=== PATIENT | male | born 1955 | race Caucasian/White ===

== ENCOUNTER 2023-11-16 20:06 | Inpatient (IN) | payer OTHER ==
[~2023-11-16] VITALS: Ht 172.7 cm; Wt 88.9 kg
[~2023-11-16 20:06] MED LIST: LISI10TA34 PO; METO25TA5 PO
[2023-11-16 20:40] LABS: Basophils # (auto) 0 10 ^3/uL (0-0.2); Basophils % (auto) 0.3 % (0.0-2.0); Eosinophils # (auto) 0.2 10 ^3/uL (0-0.8); Eosinophils % (auto) 1.1 % (0.0-7.0); Hematocrit 44.7 % (41.0-53.0); Hemoglobin 15.4 g/dL (13.5-17.5); Lymphocytes # (auto) 2.8 10 ^3/uL (0.4-5.4); Lymphocytes % (auto) 19.4 % (10.0-50.0); Mean Corpuscular Hgb Conc. 34.4 g/dL (32.0-36.0); Monocytes # (auto) 1.1 10 ^3/uL (0-1.3); Neutrophils # (auto) 10.2 10 ^3/uL (1.6-8.6); Neutrophils % (auto) 71.2 % (37.0-80.0); Nucleated Red Blood Cells % 0.1 %; Platelet Count (auto) 232 10^3/uL (140-450); Red Blood Cells 5.14 10^6/uL (4.5-5.90); Red Cell Distribution Width 13.3 % (11.8-14.3); White Blood Cell 14.3 10^3/uL (4.4-10.8)
[2023-11-16 20:56] LABS: Alanine Aminotransferase 70 U/L (7-40); Albumin 4.4 g/dL (3.2-4.8); Alkaline Phosphatase 71 U/L (46-116); Anion Gap 9 (5-15); Aspartate Aminotransferase 45 U/L (13-40); BUN/Creatinine Ratio 18.6 (10.0-20.0); Bilirubin, Total 2.9 mg/dL (0.2-1.0); Blood Urea Nitrogen 24 mg/dL (9-23); Calcium 10.3 mg/dL (8.7-10.4); Carbon Dioxide 23 mmol/L (20-30); Chloride 105 mmol/L (98-107); Glucose 139 mg/dL (74-106); Magnesium 1.9 mg/dL (1.6-2.6); Potassium 4.1 mmol/L (3.5-5.1); Sodium 137 mmol/L (136-145)
[2023-11-16 20:57] LABS: Total Protein 7.2 g/dL (5.7-8.2)
[2023-11-16] MEDS: SODIUM CHLORIDE 0.9% 1,000 ML IV ONE (21:27)
[2023-11-16] MEDS: cefTRIAXone 1GM/50ML D5W 50 ML IV ONE (23:32)
[2023-11-16] MEDS: KETOROLAC TROMETH 30 MG/ML 1ML VIAL IV ONE (23:34)
[2023-11-17 00:02] VITALS: PULSE 67; RESP 20; O2SAT 94
[2023-11-17] MEDS: HYDROcodone-ACET 5/325MG TAB PO ONE (00:24)
[2023-11-17] MEDS ORDERED: HYDROcodone-ACET 5/325MG TAB PO PRN (05:30)
[2023-11-17] MEDS ORDERED: ACETAMINOPHEN 325 MG TAB PO PRN (05:30)
[2023-11-17] MEDS ORDERED: ALBUTEROL SULF 2.5 MG/0.5ML(0.5%) NEB SOLN NEB PRN (05:30)
[2023-11-17] MEDS ORDERED: TEMAZEPAM 15 MG CAP PO PRN (05:30)
[2023-11-17] MEDS ORDERED: ONDANSETRON HCL 4 MG/2 ML VIAL IV PRN (05:30)
[2023-11-17 08:20] VITALS: PULSE 66; RESP 17; O2SAT 97
[2023-11-17] MEDS ORDERED: LISINOPRIL 20 MG TAB PO SCH (10:00)
[2023-11-17] MEDS ORDERED: ALLOPURINOL 100 MG TAB PO SCH (10:00)
[2023-11-17] MEDS ORDERED: levoFLOXacin 500MG 100 ML IV SCH (10:00)
[2023-11-17] MEDS ORDERED: METOPROLOL SUCCINATE XL 50 MG TAB PO SCH (10:00)
[2023-11-17] MEDS ORDERED: DESCOVY PO SCH (10:00)
[2023-11-17] MEDS ORDERED: NITROGLYCERIN 0.4 MG SL TAB SL PRN (12:00)
[2023-11-17] MEDS ORDERED: hydrALAZINE HCL 20 MG/ML VL IV PRN (12:00)
[2023-11-17] MEDS: ONDANSETRON HCL 4 MG/2 ML VIAL IV PRN (12:48)
[2023-11-17] MEDS: MORPHINE SULFATE INJ 2 MG/ml SYRG IV PRN (12:50)
[2023-11-17] MEDS: PIPERACILLIN-TAZOB 3.375GM 100 ML IV SCH (12:56)
[2023-11-17 16:01] LABS: Urine Bacteria None Seen /hpf (None Seen)
[2023-11-17 16:27] LABS: Urine Blood Negative /uL (Negative); Urine Clarity Clear (Clear); Urine Color Light-Yellow (Yellow); Urine Hyaline Cast FEW /lpf (0 - 2); Urine Protein, UAD Negative (Negative); Urine Specific Gravity 1.019 (1.001-1.035); Urine Urobilinogen Normal (Negative); Urine WBC 1 /hpf (0 - 3); Urine pH 5.5 (5.0-9.0)
[2023-11-17] MEDS: SODIUM CHLORIDE 0.9% 1,000 ML IV SCH (16:30)
[2023-11-17 16:32] LABS: Amphetamine Screen, Urine Neg (NEGATIVE); Barbiturate Scree,Urine Neg (NEGATIVE); Benzodiazephine Screen, Urine Neg (NEGATIVE)
[2023-11-17 16:33] LABS: Cannabinoid Screen, Urine Neg (NEGATIVE); Cocaine Screen, Urine Neg (NEGATIVE); Opiate Scree,Urine Neg (NEGATIVE); Phencyclidine Screen, Urine Neg (NEGATIVE)
[2023-11-17 17:00] LABS: COVID19 ANTIGEN SOFIA FIA NEGATIVE (NEGATIVE)
[2023-11-17] MEDS ORDERED: ALLO100T PO (20:39)
[2023-11-17] MEDS ORDERED: [UNRECOGNIZED DRUG - CODE] PO (20:39)
[2023-11-17] MEDS ORDERED: METO25TA93 PO (20:39)
[2023-11-17] MEDS ORDERED: FENO145T27 PO (20:39)
[2023-11-17] MEDS ORDERED: EMTR1TAB6 PO (20:39)
[2023-11-17] MEDS ORDERED: [UNRECOGNIZED DRUG - CODE] PO (20:39)
[2023-11-17] MEDS ORDERED: ASPI-325 PO (20:39)
[2023-11-17] MEDS ORDERED: ROSU40TA47 PO (20:39)
[2023-11-17] MEDS ORDERED: LISI20TA56 PO (20:39)
[2023-11-17] MEDS ORDERED: LATA0.008 EACHEYE (20:39)
[2023-11-17 21:00] VITALS: BP 116/75; PULSE 79; RESP 20; TEMP 98.3; O2SAT 92
[2023-11-17] MEDS: METOPROLOL TARTRATE 25 MG TAB PO SCH (22:00)
[2023-11-17] MEDS ORDERED: ATORVASTATIN 20 MG TAB PO SCH (22:00)
[2023-11-17] MEDS: FAMOTIDINE (10MG/ML) 2ML VL IV SCH (22:31)
[2023-11-18] VITALS (8 sets, daily range): BP systolic 97–143; BP diastolic 50–85; PULSE 59–85; RESP 16–18; TEMP 97.6–98.7; O2SAT 91–94
[2023-11-18 06:59] LABS: Basophils # (auto) 0 10 ^3/uL (0-0.2); Basophils % (auto) 0.3 % (0.0-2.0); Eosinophils # (auto) 0.3 10 ^3/uL (0-0.8); Eosinophils % (auto) 2.5 % (0.0-7.0); Hemoglobin 15.7 g/dL (13.5-17.5); Lymphocytes # (auto) 3.1 10 ^3/uL (0.4-5.4); Lymphocytes % (auto) 26.9 % (10.0-50.0); Mean Corpuscular Volume 88.1 fL (80.0-100.0); Monocytes # (auto) 1.1 10 ^3/uL (0-1.3); Neutrophils # (auto) 6.9 10 ^3/uL (1.6-8.6); Neutrophils % (auto) 60.3 % (37.0-80.0); Nucleated Red Blood Cells % 0.1 %; Platelet Count (auto) 214 10^3/uL (140-450); Red Blood Cells 5.23 10^6/uL (4.5-5.90); Red Cell Distribution Width 13.4 % (11.8-14.3); White Blood Cell 11.4 10^3/uL (4.4-10.8)
[2023-11-18 07:05] LABS: Alanine Aminotransferase 45 U/L (7-40); Albumin 4.3 g/dL (3.2-4.8); Alkaline Phosphatase 44 U/L (46-116); Anion Gap 4 (5-15); Aspartate Aminotransferase 24 U/L (13-40); BUN/Creatinine Ratio 10.9 (10.0-20.0); Blood Urea Nitrogen 12 mg/dL (9-23); Calcium 9.8 mg/dL (8.7-10.4); Carbon Dioxide 26 mmol/L (20-30); Chloride 104 mmol/L (98-107); Glucose 118 mg/dL (74-106); Lipase 36 U/L (12-53); Potassium 4.4 mmol/L (3.5-5.1); Sodium 134 mmol/L (136-145)
[2023-11-18 07:06] LABS: Bilirubin, Total 2.9 mg/dL (0.2-1.0); Total Protein 7.5 g/dL (5.7-8.2)
[2023-11-18] MEDS: LISINOPRIL 5 MG TAB PO SCH (10:00)
[2023-11-18] MEDS: ALLOPURINOL 100 MG TAB PO SCH (10:26)
[2023-11-18] MEDS: ENOXAPARIN SOD 40 MG/0.4 ML SYRINGE SC SCH (10:26)
[2023-11-18] MEDS: COLCHICINE 0.6 MG CAP PO SCH (13:15)
[2023-11-18] MEDS: ADENOSINE 75 MG in GIVE UN-DILUTED 0 ML IV ONE (15:07)
[2023-11-18] MEDS: MORPHINE SULFATE INJ 2 MG/ml SYRG IV PRN (22:06)
[2023-11-19] VITALS (8 sets, daily range): BP systolic 77–113; BP diastolic 42–69; PULSE 66–82; RESP 18–20; TEMP 97.7–99.3; O2SAT 91–94
[2023-11-19] MEDS: SODIUM CHLORIDE 0.9% 1,000 ML IV SCH (01:30)
[2023-11-19] MEDS: MORPHINE SULFATE 4 MG/ML SYR/VIAL IV PRN (09:40)
[2023-11-19 11:13] LABS: Basophils # (auto) 0 10 ^3/uL (0-0.2); Basophils % (auto) 0.1 % (0.0-2.0); Eosinophils # (auto) 0 10 ^3/uL (0-0.8); Eosinophils % (auto) 0.3 % (0.0-7.0); Hematocrit 45.1 % (41.0-53.0); Hemoglobin 15.5 g/dL (13.5-17.5); Lymphocytes # (auto) 2.4 10 ^3/uL (0.4-5.4); Lymphocytes % (auto) 18.1 % (10.0-50.0); Mean Corpuscular Hemoglobin 30.4 pg (28.0-32.0); Mean Corpuscular Hgb Conc. 34.3 g/dL (32.0-36.0); Mean Corpuscular Volume 88.6 fL (80.0-100.0); Monocytes # (auto) 1.4 10 ^3/uL (0-1.3); Monocytes % (auto) 10.2 % (0.0-12.0); Neutrophils # (auto) 9.5 10 ^3/uL (1.6-8.6); Neutrophils % (auto) 71.3 % (37.0-80.0); Nucleated Red Blood Cells % 0.1 %; Platelet Count (auto) 238 10^3/uL (140-450); Red Blood Cells 5.09 10^6/uL (4.5-5.90); Red Cell Distribution Width 13.7 % (11.8-14.3); White Blood Cell 13.4 10^3/uL (4.4-10.8)
[2023-11-19 11:24] LABS: Alanine Aminotransferase 38 U/L (7-40); Albumin 4.6 g/dL (3.2-4.8); Alkaline Phosphatase 41 U/L (46-116); Aspartate Aminotransferase 22 U/L (13-40); BUN/Creatinine Ratio 14.3 (10.0-20.0); Bilirubin, Total 2.3 mg/dL (0.2-1.0); Blood Urea Nitrogen 16 mg/dL (9-23); Calcium 10.4 mg/dL (8.7-10.4); Chloride 102 mmol/L (98-107); Glucose 127 mg/dL (74-106); Potassium 4.1 mmol/L (3.5-5.1); Sodium 133 mmol/L (136-145); Total Protein 7.9 g/dL (5.7-8.2)
[2023-11-19] MEDS: DESCOVY PO SCH (11:37)
[2023-11-19] MEDS: RITONAVIR 100 MG PO SCH (11:37)
[2023-11-19 12:10] LABS: Anion Gap 10 (5-15); Carbon Dioxide 21 mmol/L (20-30)
[2023-11-19] MEDS: HYDROcodone-ACET 5/325MG TAB PO PRN (18:23)
[2023-11-19] MEDS: SODIUM CHLORIDE 0.9% 250 ML IV ONE (22:00)
[2023-11-19 22:49] LABS: Chloride 103 mmol/L (98-107); Potassium 3.8 mmol/L (3.5-5.1); Sodium 134 mmol/L (136-145)
[2023-11-19 22:50] LABS: Anion Gap 7 (5-15); Carbon Dioxide 24 mmol/L (20-30)
[2023-11-19 22:51] LABS: Calcium 9.9 mg/dL (8.7-10.4)
[2023-11-19 22:55] LABS: BUN/Creatinine Ratio 12.8 (10.0-20.0); Blood Urea Nitrogen 20 mg/dL (9-23); Glucose 95 mg/dL (74-106)
[2023-11-19 22:56] LABS: Magnesium 2.1 mg/dL (1.6-2.6)
[2023-11-20] VITALS (9 sets, daily range): BP systolic 83–120; BP diastolic 53–74; PULSE 65–84; RESP 16–20; TEMP 97.4–98.7; O2SAT 87–99
[2023-11-20] MEDS: SODIUM CHLORIDE 0.9% 250 ML IV ONE (00:03)
[2023-11-20 00:21] LABS: Basophils # (auto) 0 10 ^3/uL (0-0.2); Basophils % (auto) 0.4 % (0.0-2.0); Eosinophils # (auto) 0.4 10 ^3/uL (0-0.8); Eosinophils % (auto) 3.2 % (0.0-7.0); Hematocrit 43.7 % (41.0-53.0); Hemoglobin 14.5 g/dL (13.5-17.5); Lymphocytes # (auto) 3.2 10 ^3/uL (0.4-5.4); Lymphocytes % (auto) 25.8 % (10.0-50.0); Mean Corpuscular Hemoglobin 29.8 pg (28.0-32.0); Mean Corpuscular Hgb Conc. 33.3 g/dL (32.0-36.0); Mean Corpuscular Volume 89.7 fL (80.0-100.0); Monocytes # (auto) 1.3 10 ^3/uL (0-1.3); Monocytes % (auto) 10.4 % (0.0-12.0); Neutrophils # (auto) 7.4 10 ^3/uL (1.6-8.6); Neutrophils % (auto) 60.2 % (37.0-80.0); Nucleated Red Blood Cells % 0.1 %; Platelet Count (auto) 215 10^3/uL (140-450); Red Blood Cells 4.87 10^6/uL (4.5-5.90); Red Cell Distribution Width 13.7 % (11.8-14.3); White Blood Cell 12.3 10^3/uL (4.4-10.8)
[2023-11-20 06:07] LABS: Basophils # (auto) 0 10 ^3/uL (0-0.2); Basophils % (auto) 0.4 % (0.0-2.0); Eosinophils # (auto) 0.4 10 ^3/uL (0-0.8); Eosinophils % (auto) 3.3 % (0.0-7.0); Hematocrit 43.6 % (41.0-53.0); Hemoglobin 15.2 g/dL (13.5-17.5); Lymphocytes # (auto) 2.9 10 ^3/uL (0.4-5.4); Lymphocytes % (auto) 25.2 % (10.0-50.0); Mean Corpuscular Hemoglobin 30.4 pg (28.0-32.0); Mean Corpuscular Hgb Conc. 34.9 g/dL (32.0-36.0); Monocytes % (auto) 8.6 % (0.0-12.0); Neutrophils # (auto) 7.2 10 ^3/uL (1.6-8.6); Neutrophils % (auto) 62.5 % (37.0-80.0); Platelet Count (auto) 261 10^3/uL (140-450); Red Blood Cells 5.01 10^6/uL (4.5-5.90); Red Cell Distribution Width 13.4 % (11.8-14.3); White Blood Cell 11.6 10^3/uL (4.4-10.8)
[2023-11-20 06:18] LABS: Chloride 102 mmol/L (98-107); Sodium 135 mmol/L (136-145)
[2023-11-20 06:19] LABS: Anion Gap 8 (5-15); Calcium 10.1 mg/dL (8.7-10.4); Carbon Dioxide 25 mmol/L (20-30)
[2023-11-20 06:24] LABS: BUN/Creatinine Ratio 14.8 (10.0-20.0); Blood Urea Nitrogen 22 mg/dL (9-23); Glucose 121 mg/dL (74-106)
[2023-11-20 06:25] LABS: INR 1.05 (0.9-1.15); Partial Thromboplastin Time 29.8 SEC (24.5-34.5); Prothrombin Time 11.1 sec (9.3-11.8)
[2023-11-20] MEDS: SODIUM CHLORIDE 0.9% 1,000 ML IV SCH (13:00)
[2023-11-20] MEDS ORDERED: MORPHINE SULFATE INJ 2 MG/ml SYRG IV PRN (14:15)
[2023-11-20] MEDS ORDERED: hydrALAZINE HCL 20 MG/ML VL IV PRN (14:15)
[2023-11-20] MEDS ORDERED: fentaNYL CITRATE 100 MCG/2 ML VL IV PRN (14:15)
[2023-11-20] MEDS: ONDANSETRON HCL 4 MG/2 ML VIAL IV ONE (14:15)
[2023-11-20] MEDS ORDERED: MIDAZOLAM HCL 2MG/2ML 2ml VIAL (1mg/ml) ONE (14:25)
[2023-11-20] MEDS ORDERED: fentaNYL CITRATE 100 MCG/2 ML VL ONE (14:25)
[2023-11-20] MEDS ORDERED: DexAMETHasone SOD PHOS 10MG/1ML VIAL INJ ONE (14:26)
[2023-11-20] MEDS ORDERED: PROPOFOL 10 MG/ML 20 ML IV ONE (14:26)
[2023-11-20] MEDS ORDERED: ONDANSETRON HCL 4 MG/2 ML VIAL ONE (14:26)
[2023-11-20] MEDS ORDERED: LIDOCAINE 2% (LOCAL ANESTH.) PF 5ml SDV ONE (14:26)
[2023-11-20] MEDS ORDERED: ROCURONIUM 10MG/ML 10ML VIAL IV ONE (14:26)
[2023-11-20] MEDS: SUCCINYLCHOLINE CHLORIDE 20 MG/ML 10ML VIAL IV ONE (14:28)
[2023-11-20] MEDS ORDERED: ePHEDrine SULFATE 50 MG/ML AMP ONE (15:07)
[2023-11-20] MEDS ORDERED: MEPERIDINE HCL (50 MG/ML) 1 ML VIAL ONE (15:26)
[2023-11-20] MEDS ORDERED: SUGAMMADEX 200mg/2ml Vial (100MG/ML) IV ONE (15:31)
[2023-11-20] MEDS: BUPIVACAINE 0.25% INJ 50ML VIAL ONE (15:50)
[2023-11-20] MEDS: MORPHINE SULFATE INJ 2 MG/ml SYRG IV ONE (16:56)
[2023-11-20] MEDS: MORPHINE SULFATE INJ 2 MG/ml SYRG ONE (16:57)
[2023-11-21] VITALS (7 sets, daily range): BP systolic 95–119; BP diastolic 20–74; PULSE 59–82; RESP 18–22; TEMP 97.4–98.3; O2SAT 87–98
[2023-11-21] MEDS: MORPHINE SULFATE INJ 2 MG/ml SYRG IV PRN (00:24)
[2023-11-21] MEDS: FAMOTIDINE (10MG/ML) 2ML VL IV SCH (09:17)
[2023-11-21] MEDS ORDERED: NALO4SPR2 (13:48)
[2023-11-21] MEDS ORDERED: HYDR-4902 PO (13:48)
[2023-11-21 14:27] LABS: Basophils # (auto) 0 10 ^3/uL (0-0.2); Basophils % (auto) 0.1 % (0.0-2.0); Eosinophils # (auto) 0 10 ^3/uL (0-0.8); Hematocrit 40.2 % (41.0-53.0); Hemoglobin 14.2 g/dL (13.5-17.5); Lymphocytes # (auto) 0.9 10 ^3/uL (0.4-5.4); Lymphocytes % (auto) 5.8 % (10.0-50.0); Mean Corpuscular Hemoglobin 30.8 pg (28.0-32.0); Mean Corpuscular Hgb Conc. 35.3 g/dL (32.0-36.0); Mean Corpuscular Volume 87.2 fL (80.0-100.0); Monocytes # (auto) 0.8 10 ^3/uL (0-1.3); Monocytes % (auto) 4.9 % (0.0-12.0); Neutrophils # (auto) 14.4 10 ^3/uL (1.6-8.6); Neutrophils % (auto) 89.2 % (37.0-80.0); Platelet Count (auto) 250 10^3/uL (140-450); Red Blood Cells 4.61 10^6/uL (4.5-5.90); Red Cell Distribution Width 13.1 % (11.8-14.3); White Blood Cell 16.1 10^3/uL (4.4-10.8)
[2023-11-21 14:40] LABS: Alanine Aminotransferase 40 U/L (7-40); Albumin 4.3 g/dL (3.2-4.8); Alkaline Phosphatase 40 U/L (46-116); Anion Gap 9 (5-15); Aspartate Aminotransferase 36 U/L (13-40); BUN/Creatinine Ratio 15.3 (10.0-20.0); Bilirubin, Total 2.2 mg/dL (0.2-1.0); Blood Urea Nitrogen 18 mg/dL (9-23); Calcium 10.3 mg/dL (8.7-10.4); Carbon Dioxide 24 mmol/L (20-30); Chloride 104 mmol/L (98-107); Glucose 160 mg/dL (74-106); Potassium 4.4 mmol/L (3.5-5.1); Sodium 137 mmol/L (136-145); Total Protein 7.8 g/dL (5.7-8.2)
[2023-11-21] MEDS ORDERED: AMOX500T86 PO (16:16)
== END 2023-11-21 19:02 | disposition home or self-care (01) | DRG 419 ==
LOC: ER 20:06 → EDBD 20:06 → TELE 11-17 11:49 → TELE-E-ADS 11-17 22:00
PROVIDERS: ADMIT Hospitalist; ATTEND Hospitalist
PROC: 0FT44ZZ Resection of Gallbladder, Percutaneous Endoscopic Approach (ICD-10-PCS; principal; 2023-11-20 14:47)
DX: K80.00 Calculus of gallbladder with acute cholecystitis without obstruction (principal); E78.5 Hyperlipidemia, unspecified; I25.10 Atherosclerotic heart disease of native coronary artery without angina pectoris; M10.9 Gout, unspecified; E66.9 Obesity, unspecified; I12.9 Hypertensive chronic kidney disease with stage 1 through stage 4 chronic kidney disease, or unspecified chronic kidney disease; N18.9 Chronic kidney disease, unspecified; Z20.822 Contact with and (suspected) exposure to COVID-19; Z95.5 Presence of coronary angioplasty implant and graft; Z82.49 Family history of ischemic heart disease and other diseases of the circulatory system; Z68.29 Body mass index [BMI] 29.0-29.9, adult
CPT/HCPCS: 36415; 71045; 74181; 76705; 78226; 78452; 80048; 80053; 80307; 81001; 82248; 83605; 83690; 83735; 83880; 84484; 85025; 85379; 85610; 85730; 86850; 86900; 86901; 87426; 93005; 93017; 93306; 96365; 96375; G0378; J0153; J0330; J1100; J1885; J2001; J2250; J2405; J2543; J2704; J3490